=== PATIENT | female | born 1970 | race Caucasian/White ===

== ENCOUNTER 2019-06-24 19:53 | Inpatient (IN) | payer MEDICAID ==
[~2019-06-24] VITALS: Ht 170.2 cm; Wt 108.6 kg
[2019-06-26 14:00] VITALS: BP 144/98
== END 2019-06-26 19:15 | disposition home or self-care (01) | DRG 918 ==
LOC: ED 20:39 → EDIP 06-25 00:30 → 4WST 06-25 01:05
PROVIDERS: ADMIT Internal Medicine; ATTEND Internal Medicine
DX: T40.2X2A Poisoning by other opioids, intentional self-harm, initial encounter (principal); E03.9 Hypothyroidism, unspecified; E78.5 Hyperlipidemia, unspecified; F10.220 Alcohol dependence with intoxication, uncomplicated; F17.200 Nicotine dependence, unspecified, uncomplicated; F41.9 Anxiety disorder, unspecified; F43.21 Adjustment disorder with depressed mood; G89.4 Chronic pain syndrome; I10 Essential (primary) hypertension; T51.0X1A Toxic effect of ethanol, accidental (unintentional), initial encounter; K21.9 Gastro-esophageal reflux disease without esophagitis; M41.9 Scoliosis, unspecified; Y90.8 Blood alcohol level of 240 mg/100 ml or more; Z82.49 Family history of ischemic heart disease and other diseases of the circulatory system; Y92.89 Other specified places as the place of occurrence of the external cause; Z63.8 Other specified problems related to primary support group
CPT/HCPCS: 36415; 80048; 80053; 80307; 83735; 83930; 84439; 84443; 85025; 85610; 93005; 93306; 96374; 99285; G0378; J2310; J7030; Q0163